=== PATIENT | female | born 1950 | race African-American/Black ===

== ENCOUNTER 2016-11-11 15:34 | Outpatient (CLI) | payer OTHER | END 2016-11-11 20:37 | disposition home or self-care (01) | LOC: SRD 15:34 | PROVIDERS: ATTEND Orthopaedic Surgery | DX: Z01.818 Encounter for other preprocedural examination (principal); J44.9 Chronic obstructive pulmonary disease, unspecified | CPT/HCPCS: 71020-TC ==

== ENCOUNTER 2016-11-14 08:57 | Inpatient (IN) | payer OTHER ==
[2016-11-10 13:01] LABS: BASOPHILS % (AUTO) 0.7 % (0.0-2.0); EOSINOPHILS % (AUTO) 0.8 % (0.0-4.0); HEMATOCRIT 31.6 % (36-48); HEMOGLOBIN 10.4 g/dL (12.0-16.0); LYMPHOCYTES # (AUTO) 2.2 K/uL (1.0-5.5); LYMPHOCYTES % (AUTO) 37.6 % (20.5-51.5); MEAN CORPUSCULAR HEMOGLOBIN 29 pg (27-31); MEAN CORPUSCULAR HGB CONC 33 % (32-36); MEAN CORPUSCULAR VOLUME 89 fL (79.0-98.0); MONOCYTES # (AUTO) 0.3 K/uL (0.0-1.0); MONOCYTES % (AUTO) 4.9 % (1.7-9.3); NEUTROPHILS # (AUTO) 3.5 K/uL (1.8-7.7); PLATELET COUNT (AUTO) 334 K/uL (130-430); RED BLOOD CELL COUNT(AUTO) 3.57 MIL/uL (4.2-6.2); RED CELL DISTRIBUTION WIDTH 13.1 % (9.0-15.0)
[2016-11-10 13:04] LABS: BILIRUBIN,URINE NEGATIVE (NEGATIVE); BLOOD, URINE TRACE (NEGATIVE); CLARITY/URINE CLEAR (CLEAR); COLOR,URINE YELLOW (YELLOW); GLUCOSE,URINE NEGATIVE (NEGATIVE); KETONES,URINE NEGATIVE (NEGATIVE); LEUKOCYTE ESTERASE ,URINE NEGATIVE (NEGATIVE); NITRITE, URINE NEGATIVE (NEGATIVE); PH,URINE 5.5 (5.0-8.0); PROTEIN URINE NEGATIVE (NEGATIVE); UROBILINOGEN,URINE 0.2 (0.2-1.0)
[2016-11-10 13:05] LABS: CREATININE 0.68 mg/dL (0.55-1.30); POTASSIUM 3.7 mmol/L (3.5-5.1)
[2016-11-10 13:22] LABS: RBC,URINE 0-3 /HPF (0-3); WBC,URINE NONE SEEN /HPF (0-3)
[2016-11-10 13:23] LABS: BACTERIA,URINE RARE /HPF (None Seen); MUCUS,URINE None Seen /LPF (None Seen)
[~2016-11-14] VITALS: Ht 152.4 cm; Wt 62.6 kg
[~2016-11-14 08:57] MED LIST: CLINDAMYCIN PHOS 600 MG/ D5W 50 ML PREMIX IV ONE; CLINDAMYCIN PHOSPHATE 600 mg/50mL D5W IV ONE; COMMUNICATION ORDER XX ONE; VANCOMYCIN 1 GM/NS 250 ML PREMIX BAG IV ONE; VANCOMYCIN HCL 1,000 MG in NS 250 ML IV ONE
[2016-11-14] MEDS ORDERED: HYDR25TA4 PO (09:51)
[2016-11-14] MEDS ORDERED: FERR140T PO (09:51)
[2016-11-14] MEDS ORDERED: HYDR-1189 PO (09:51)
[2016-11-14] MEDS ORDERED: CETI1TAB2 PO (10:05)
[2016-11-14] MEDS ORDERED: IBUP-1517 PO (10:05)
[2016-11-14] MEDS ORDERED: POLYMYXIN 500,000/BACIT.10,000 UNITS in NS IRR 1 L IR ONE (11:11)
[2016-11-14] MEDS ORDERED: DOXYCYCLINE HYCLATE 100 MG VIAL IV ONE (12:00)
[2016-11-14] MEDS ORDERED: NS 100 ML BAG IV ONE (12:00)
[2016-11-14] MEDS ORDERED: NORMAL SALINE 10 ML VIAL IVP ONE (12:00)
[2016-11-14] MEDS ORDERED: ONDANSETRON HCL 4 MG/2 ML VIAL IVP ONE (12:00)
[2016-11-14] MEDS ORDERED: CLINDAMYCIN PHOSPHATE 600 mg/50mL D5W IV ONE (12:00)
[2016-11-14] MEDS ORDERED: LR 1,000 ML IV.SOLN IV ONE (12:00)
[2016-11-14] MEDS ORDERED: MIDAZOLAM HCL 5 MG/5 ML VIAL IVP ONE (12:00)
[2016-11-14] MEDS ORDERED: TRANEXAMIC ACID 1,000 MG/10 ML VIAL IV ONE (12:00)
[2016-11-14] MEDS ORDERED: MORPHINE SULFATE 10MG/10ML PF AMP EP ONE (12:00)
[2016-11-14] MEDS ORDERED: DIPHENHYDRAMINE INJ 50 MG/ML VIAL IVP ONE (12:00)
[2016-11-14] MEDS ORDERED: LR 1,000 ML IV SCH (13:33)
[2016-11-14] MEDS ORDERED: MORPHINE SULFATE 10MG/10ML PF AMP SP SCH (13:45)
[2016-11-14] MEDS ORDERED: NALOXONE HCL 0.4 MG/ML AMP (NARCAN) IVP PRN (13:45)
[2016-11-14] MEDS ORDERED: MEPERIDINE HCL/PF 50 MG/ML AMP IVP PRN ×2 (13:45)
[2016-11-14] MEDS ORDERED: KETOROLAC TROMETHAMINE 60 MG/2 ML VIAL IM PRN (13:45)
[2016-11-14] MEDS ORDERED: METOCLOPRAMIDE HCL 10 MG/2 ML VIAL IVP PRN (13:45)
[2016-11-14] MEDS ORDERED: DIPHENHYDRAMINE INJ 50 MG/ML VIAL IM PRN (13:45)
[2016-11-14] MEDS ORDERED: MEPERIDINE HCL/PF 25 MG/ML DISP.SYRIN IVP PRN (13:45)
[2016-11-14] MEDS: D5/0.45 NS 1,000 ML IV SCH ×2 (14:40→22:33)
[2016-11-14] MEDS ORDERED: DIPHENHYDRAMINE HCL 25 MG CAPSULE PO PRN (14:45)
--- NOTE | 2016-11-14 15:40 | NUR ---
ADMIT PATIENT RECEIVED FROM PACU. REPORT GIVEN BY TIO CHISHOLM. PATIENT IN STABLE CONDITION. NO S.S OF DISTRESS OR SOB. VITAL SIGNS WNL. PATIENT IS ASLEEP, BUT EASILY AROUSABLE. LARIOS IS DRAINING TO GRAVITY. SCD AND POLAR CARE IS ON. LR IS INFUSING. AT BEDSIDE. VITAL SIGNS MONITORING STARTED. CALL LIGHT IN REACH, BED IN LOWEST POSITION ,AND WILL CONTINUE TO MONITOR.
[2016-11-14 15:45] VITALS: BP_SYST 114
--- NOTE | 2016-11-14 15:49 | NUR ---
CONSULTATION PAGED REASON FOR CONSULTATION: MED MANAGEMENT WAS CONSULT CALLED?: Y PERSON WHO WAS NOTIFIED: MEÑO CONSULTING PHYSICIAN: YAJAIRA TABARES AUTOMOTIVE ALIGNMENT SPECIALIST SPECIALTY: FAMILY MEDICINE AUTOMOTIVE ALIGNMENT SPECIALIST PHONE NUMBER: [phone] REQUESTING PHYSICIAN: HAL CAGLE
[2016-11-14 15:59] VITALS: BP_SYST 114
[2016-11-14] MEDS ORDERED: TRANEXAMIC ACID 1,000 MG in NS 50 ML IV ONE (17:45)
[2016-11-14] MEDS: ONDANSETRON HCL 4 MG/2 ML VIAL IVP PRN (17:46)
[2016-11-14] MEDS: KETOROLAC TROMETHAMINE 15 MG VIAL IVP SCH (17:47)
--- NOTE | 2016-11-14 18:47 | NUR ---
CLOSING NOTE: PATIENT IS RESTING COMFORTABLY IN BED. NO S/S OF DISTRESS OR SOB. PATIENT IS AWAKE AND ALERT. SON IS AT BEDSIDE. PATIENT WAS NAUSEOUS AND THREW UP WITH DINNER, ZOFRAN ADMINISTERED. PATIENT IS HAVING MORE MOVEMENT IN TOES. LARIOS DRAINING TO GRAVITY. CALL LIGHT IN REACH, BED IN LOWEST POSITION, AND WILL CONTINUE TO MONITOR.
--- NOTE | 2016-11-14 19:46 | NUR ---
PM ASSESSMENT AND REPORT PATIENT APPEARS DROWSY, BUT ALERT, ORIENTED X4. ABLE TO MAKE NEEDS KNOWN. FAMILY AT BEDSIDE FOR COMFORT AND SUPPORT. PATIENT SPEECH IS CLEAR AND UNDERSTANDABLE. VITAL SIGNS CHECKED AND WITHIN NORMAL BASELINE FOR PATIENT. PATIENT RIGHT KNEE WITH POLAR CARE, KNEE COVERED WITH DORY WRAP DRESSING C/D/I. HEMOVAC DRAINING BLOODY DRAINAGE. PATIENT COMPLAINING OF NAUSEA, MEDICATION GIVEN PER DAY SHIFT NURSE, WILL CONTINUE TO MONITOR FOR IMPROVEMENT. PATIENT WITH LARIOS CATHETER IN PLACE, DRAINING CLEAR YELLOW URINE TO GRAVITY. PATIENT ENCOURAGED TO USE INCENTIVE SPIROMETER, NOTED REACHED 1500 AT THIS TIME, ENCOURAGE TO INCREASE BY MORNING GOAL OF 1800. PATIENT DENIES ANY PAIN AT THIS TIME. OFFLOADING OF HEELS. ENCOURAGE [id number], PATIENT DEMONSTRATED ABILITY TO SELF TURN, RISKS AND BENEFITS EXPLAINED.
[2016-11-14 19:53] VITALS: BP_SYST 134
--- NOTE | 2016-11-14 20:07 | NUR ---
NAUSEA AND VOMITING PATIENT IS FEELING NAUSEA AND IS VOMITING X2 APPROXIMATELY 300 ML. PAGED MD GUZMAN FOR MORE MEDICATIONS PRN. AWAITING CALL BACK. PROVIDED PATIENT ICE CHIPS AND BASIN AND TOWEL. COMFORT MEASURES PROVIDED.
[2016-11-14] MEDS: METOCLOPRAMIDE HCL 10 MG/2 ML VIAL IVP PRN (20:28)
[2016-11-14] MEDS: SENNOSIDES 8.6 MG TABLET PO SCH ×2 (20:28→20:30)
--- NOTE | 2016-11-14 20:30 | NUR ---
MEDICATION PROVIDED NAUSEA MEDICATION ORDERED. AWAITING TO REASSESS RELIEF. MD ALBRECHT MADE AWARE OF PATIENTS DROWSINESS, PATIENT RESPONDS VERBALLY TO NAME AND QUESTIONS APPROPRIATELY. VITAL SIGNS RECHECKED AND WITHIN NORMAL BASELINE. WILL CONTINUE TO MONITOR FOR CHANGES.
--- NOTE | 2016-11-14 20:46 | NUR ---
Spoke to Dr. Tuttle over the phone, updated him on patient's status and new medication orders recieved from Dr. Paige, no new orders at this time.
--- NOTE | 2016-11-14 20:51 | NUR ---
ROUTINE CONSULTATION FOR DR RHEA GENTILE: MED MANAGEMENT ORDERED BY: DR PALMER SPOKE WITH: JAMES
--- NOTE | 2016-11-14 21:03 | NUR ---
Spoke to Dr. Ruelas regarding new consult, updated him on patient's status, states he will see patient in the am. No new orders at this time.
--- NOTE | 2016-11-14 22:31 | NUR ---
ROUNDS PATIENT RESTING AT THIS TIME. BED IN LOWEST POSITION, BED ALARM ON. CONTINUOS PULSE OX READS 95% ON 2 LITERS OXYGEN VIA NASAL CANNULA.
[2016-11-15] VITALS: BP_SYST 103
--- NOTE | 2016-11-15 00:40 | NUR ---
Rounds Patient asleep at this time, easily awakens with name calling. Patient in no distress. Bed alarm on.
--- NOTE | 2016-11-15 01:36 | NUR ---
ROUNDS PATIENT IN BED RESTING. DENIES ANY PAIN AT THIS TIME. LARIOS CATHETER DRAINING CLEAR YELLOW URINE. D5%1/2 NS INFUSING AT 100ML/HR PATENT. PATIENT ON CONTINUOS PULSE OX WITH SPO2 SHOWING 95% ON 2 LITERS OF OXYGEN VIA NC. TURNED AND REPOSITIONED.
--- NOTE | 2016-11-15 03:39 | NUR ---
ROUNDS PATIENT AWAKE, ALERT, ORIENTED X4. APPEARS LESS DROWSY AT THIS TIME. PATIENT IN BED RESTING ASSISTED WITH TURNING AND REPOSITIONING OF PILLOWS. PATIENT ENCOURAGED TO USE IS WHILE AWAKE. PATIENT AT THIS TIME USING IS NOTED PATIENT REACHED 1500 ML ON IS.
[2016-11-15 03:43] VITALS: BP_SYST 100
[2016-11-15 06:29] LABS: BASOPHILS % (AUTO) 0.1 % (0.0-2.0); EOSINOPHILS % (AUTO) 0.1 % (0.0-4.0); HEMATOCRIT 29.5 % (36-48); HEMOGLOBIN 9.5 g/dL (12.0-16.0); LYMPHOCYTES # (AUTO) 0.9 K/uL (1.0-5.5); LYMPHOCYTES % (AUTO) 9.7 % (20.5-51.5); MEAN CORPUSCULAR HEMOGLOBIN 29 pg (27-31); MEAN CORPUSCULAR HGB CONC 32 % (32-36); MEAN CORPUSCULAR VOLUME 89 fL (79.0-98.0); MONOCYTES # (AUTO) 0.6 K/uL (0.0-1.0); MONOCYTES % (AUTO) 6.9 % (1.7-9.3); NEUTROPHILS # (AUTO) 7.8 K/uL (1.8-7.7); NEUTROPHILS % (AUTO) 83.2 % (40.0-70.0); PLATELET COUNT (AUTO) 316 K/uL (130-430); RED BLOOD CELL COUNT(AUTO) 3.31 MIL/uL (4.2-6.2); RED CELL DISTRIBUTION WIDTH 13.1 % (9.0-15.0); WHITE BLOOD COUNT (AUTO) 9.3 K/uL (4.8-10.8)
--- NOTE | 2016-11-15 06:34 | NUR ---
CLOSING NOTES PATIENT AWAKE, ALERT, AND ORIENTED X4. DENIES ANY PAIN IN RIGHT KNEE. PATIENT SEEN USING IS IN BED. ENCOURAGE TO USE 10X/HR. BED IN LOWEST POSITION.
[2016-11-15 06:43] LABS: CALCIUM 8.2 mg/dL (8.4-11.0); CREATININE 0.71 mg/dL (0.55-1.30); POTASSIUM 3.5 mmol/L (3.5-5.1)
--- NOTE | 2016-11-15 07:30 | NUR ---
INITIAL NOTE PT SITTING UP IN BED, AWAKE, ALERT AND ORIENTED, COMPLAINS OF NAUSEA, DENIES ANY PAIN AT THIS TIME, STATES IT IS TOLERABLE, WILL FOLLOW UP WITH NAUSEA MEDICATION, DR PALMER AT BEDSIDE, RIGHT KNEE ASSESSED, DRESSING CLEAN DRY AND INTACT, PT ABLE TO WIGGLE TOES, PULSES PALPABLE, SWELLING NOTED, NO PITTING, IV FLUIDS INFUSING TO LFA AT ORDERED RATE, NO S/S OF INFILTRATION NOTED, INCENTIVE SPIROMETER AT BEDSIDE, PT ABLE TO DEMONSTRATE USE, UP TO 1000, PT REORIENTED TO USE OF CALL LIGHT AND IT IS PLACED WITHIN REACH, SAFETY MEASURES IN PLACE, WILL CONTINUE TO MONITOR
--- NOTE | 2016-11-15 07:55 | NUR ---
DR WILKERSON AT BEDSIDE, NEW ORDERS RECEIVED WILL CARRY OUT AND CONTINUE TO MONITOR
[2016-11-15 08:00] VITALS: BP_SYST 139
[2016-11-15] MEDS: KETOROLAC TROMETHAMINE 15 MG VIAL IVP SCH ×2 (08:16)
[2016-11-15] MEDS: ASCORBIC ACID 500 MG TABLET PO SCH ×2 (08:16→22:45)
[2016-11-15] MEDS: MULTIVITAMINS TAB 1 TABLET PO SCH (08:16)
[2016-11-15] MEDS: METOCLOPRAMIDE HCL 10 MG/2 ML VIAL IVP PRN ×2 (08:16→20:52)
[2016-11-15] MEDS ORDERED: HYDROmorphone 1 MG INJ. 1 MG/ML AMPUL IVP PRN (08:30)
[2016-11-15] MEDS ORDERED: NALOXONE HCL 0.4 MG/ML AMP (NARCAN) IVP PRN (08:30)
[2016-11-15] MEDS ORDERED: HYDROMORPHONE PCA 10 mg/50 mL IV PRN (08:30)
--- NOTE | 2016-11-15 08:46 | NUR ---
DISCHARGE PLANNING DC planning order to arrange home health. Faxed referral to MD ardon [phone]. Will follow up. Addendum: 11/15/16 at 1143 by Zaynab Kaur DP Spoke with Hilary in intake dept at [facility] able to accept case. Hilary made aware of discharge plan. Faxed DME order for FWW to [phone] requesting for DME to be delivered to patient hospital room. Will follow up. Addendum: 11/15/16 at 1420 by Zaynab Kaur DP spoke with intake dept at [facility] who advised DCP to call back due to referral still pending to be reviewed. DCP will follow up. Addendum: 11/15/16 at 1625 by Zaynab Kaur DP Spoke with Berhane in intake dept at [facility] [phone] confirmed DME order for FWW was received and currently in process. Berhane will return call to MSP with status. DCP will follow up.
[2016-11-15] MEDS ORDERED: HYDROCHLOROTHIAZIDE 25 MG TABLET (HCTZ) PO SCH (09:00)
[2016-11-15] MEDS: KCL 20 mEq in D5NS 1000 mL 1,000 ML IV SCH ×2 (09:21→16:11)
[2016-11-15] MEDS: PANTOPRAZOLE SODIUM 40 MG/VIAL (PROTONIX) IVP SCH (09:22)
[2016-11-15] MEDS: RIVAROXABAN 10 MG TABLET PO SCH (09:22)
--- NOTE | 2016-11-15 09:40 | NUR ---
PATIENT CONNECTED TO COMMUNICATIONS EQUIPMENT INSTALLER PUMP WITH DILAUDID, EDUCATED REGARDING USE AND HOW TO PUSH BUTTON WHEN IN PAIN, PT VERBALIZED UNDERSTANDING, CALL LIGHT WITHIN REACH, WILL CONTINUE TO MONITOR CLOSELY
--- NOTE | 2016-11-15 10:03 | NUR ---
Nutrition Update Leonides Scale 17 noted. Pt admitted for unilateral post-traumatic osteoarthritis, R knee. Diet: full liquid BMI: 27 kg/m2 RD to follow per nutrition care standards.
[2016-11-15] MEDS: ONDANSETRON HCL 4 MG/2 ML VIAL IVP PRN ×2 (10:48→16:08)
--- NOTE | 2016-11-15 11:00 | NUR ---
NAUSEA AND VOMITING PT COMPLAINING NAUSEA AND VOMITING, ADMINISTERED PRN ZOFRAN, PREVIOUSLY ADMINISTERED REGLAN AT 0820, WILL CONTINUE TO MONITOR PT CLOSELY
[2016-11-15] MEDS ORDERED: PROMETHAZINE HCL 25 MG/ML AMP IM PRN (11:15)
--- NOTE | 2016-11-15 11:15 | NUR ---
DOWLING MAKING ROUNDS, UPDATED ON PATIENT STATUS, PT EXPERIENCING NAUSEA AND VOMITING DESPITE REGLAN AND ZOFRAN, ORDERED PHENERGAN 15MG IM PRN, NOTED PT IS SITTING IN BEDSIDE CHAIR, MD STATED WHEN PATINET RETURNS TO BED TO ADMINISTER PHENERGAN DUE TO POSSIBLE WEAKNESS
[2016-11-15 12:00] VITALS: BP_SYST 131
--- NOTE | 2016-11-15 12:00 | NUR ---
PATIENT RETURNED TO BED, EDUCATED REGARDING NEW MEDIATION FOR NAUSEA PHENERGAN, PT STATES NAUSEA I BETTER AT THE MOMENT, REFUSES MEDICATION AT THIS TIME, WILL FOLLOW UP
--- NOTE | 2016-11-15 13:00 | NUR ---
ROUNDS PT LAYING IN BED, RESTING, EYES CLOSED, EVEN RISE AND FALL OF CHEST NOTED, SAFETY MEASURES IN PLACE, CALL LIGHT WITHIN REACH, WILL CONTINUE TO MONITOR
--- NOTE | 2016-11-15 14:30 | NUR ---
ROUNDS PT AWAKE, ALERT AND ORIENTED, DENIES ANY PAIN OR NAUSEA AT THIS TIME, PER REPORT SHE WAS ABLE TO TOLERATE LUNCH MODERATELY, NO EPISODE OF VOMITING, PT STATES SHE IS FEELING BETTER, PULSES PALPABLE BILATERALLY, PT ABLE TO WIGGLE TOES, PT ABLE TO ISABEL INCENTIVE SPIROMETER AND REACH 1000 TO 1500, WILL CONTINUE TO ENCOURAGE USE,
--- NOTE | 2016-11-15 16:00 | NUR ---
ZOFRAN GIVEN BEFORE DINNER PER PATIENT REQUEST, PT IS HOPING SHE WILL BE ABLE TO TOLERATE FOOD, WITH OUT NAUSEA AND VOMITING, WILL FOLLOW UP
--- NOTE | 2016-11-15 16:00 | NUR ---
PHYSICAL THERAPY CO-SIGN The Physical Therapy Progress Notes documented by Scholastic Aptitude Test Grader have been reviewed. Reviewed/Co-Signed by: Celsa Nascimento, PT Documentation Done by: Esvin Martinez PTA I concur with the PM documentation of this RIFLE CASE REPAIRER. Plan: continue as per plan of care. Addendum: 11/16/16 at 0914 by Celsa Nascimento PT Amended: Links added.
[2016-11-15 16:37] VITALS: BP_SYST 131
[2016-11-15 17:11] VITALS: BP_SYST 128
--- NOTE | 2016-11-15 18:00 | NUR ---
FAMILY AT BEDSIDE, PT SHOBHA SHE WAS ABLE TO TOLERATE A BIT MORE FOOD, DENIES ANY PAIN OR NAUSEA AT THIS TIME, VSS, NO S/S OF ACUTE DISTRESS, HEMOVAC EMPTIED, OUTPUT 125ML DURING SHIFT, CALL LIGHT WITHIN REACH, BED IN LOW POSITION AND LOCKED, WILL FOLLOW UP
--- NOTE | 2016-11-15 18:45 | NUR ---
CLOSING NOTE PT LAYING IN BED, AWAKE, ALERT AND ORIENTED, NO S/S OF ACUTE DISTRESS, FAMILY AT BEDSIDE, DENIES ANY PAIN AT TIME, PT REEDUCATED REGARDING USE OF PHOTO PRINT SPECIALIST PUMP PT VERBALIZES UNDERSTANDING AND ABLE TO DEMONSTRATE HOW TO SELF ADMINISTER DOSE, CONTINUES TO DENY PAIN, DENIES ANY NAUSEA, NO VOMITING NOTED, IV FLUIDS INFUSING AT ORDERED RATE, NO S/S OF INFILTRATION NOTED, DRESSING TO RIGHT KNEE CLEAN DRY AND INTACT, HEMOVAC IN PLACE, RECENTLY EMPTIED, ALL NEEDS ATTENDED TO THROUGHOUT SHIFT, SAFETY MEASURES MAINTAINED, CALL LIGHT WITHIN REACH, WILL GIVE REPORT TO FOLLOWING SHIFT.
--- NOTE | 2016-11-15 19:50 | NUR ---
ROUNDS PATIENT RESTING COMFORTABLY IN BED, VITALS STABLE, NOT IN DISTRESS, DENIES ANY PAIN AND DISCOMFORT AT THIS TIME. ASSESSMENT DONE AND DOCUMENTED. SEE FLOWSHEET. NEEDS ATTENDED TO. PATIENT REPOSITIONED AND MADE COMFORTABLE. SAFETY AND FALL PRECAUTION MEASURES IN PLACED. BED IN LOW AND LOCKED POSITION. CALL LIGHT PLACED WITHIN REACH.
--- NOTE | 2016-11-15 21:35 | NUR ---
Received a call from Sophia Tuttle: Received a call from Dr. Tuttle and asked how the patient doing. Informed Dr. Tuttle that patient having nausea and vomiting when having Dilaudid, Gave an order to discontinue BLOWER FEEDER DYED RAW STOCK Dilaudid. Noted and made primary RN aware.
--- NOTE | 2016-11-15 21:50 | NUR ---
NOTES BROADCAST OPERATIONS TECHNICIAN DILAUDID D/CD ORDERED, REMAINING MEDICATION, 45 ML, IN SYRINGE WASTED WITNESSED BY ADMITTING NURSE TIO DUNHAM. WILL CONTINUE TO MONITOR.
[2016-11-15] MEDS: SENNOSIDES 8.6 MG TABLET PO SCH (22:30)
[2016-11-15] MEDS: HYDROcodone/ACETAMIN 7.5-325 MG TAB PO PRN (23:59)
[2016-11-16] VITALS (8 sets, daily range): BP systolic 111–142
--- NOTE | 2016-11-16 | NUR ---
PATIENT RESTING: Patient resting quietly. No acute distress noted. Vital signs within normal range.
[2016-11-16] MEDS: KCL 20 mEq in D5NS 1000 mL 1,000 ML IV SCH ×3 (01:57→20:52)
--- NOTE | 2016-11-16 02:30 | NUR ---
ROUNDS PATIENT ASLEEP, NO SOB NOR PAIN AND DISCOMFORT NOTED. WILL CONTINUE TO MONITOR.
--- NOTE | 2016-11-16 05:10 | NUR ---
NOTES PATIENT MADE CLEAN AND COMFORTABLE, BED BATH GIVEN WITH JACOB MILAN. DENIES ANY PAIN NOR N/V AT THIS TIME. WILL CONTINUE TO MONITOR.
[2016-11-16 06:36] LABS: BASOPHILS % (AUTO) 0.2 % (0.0-2.0); EOSINOPHILS % (AUTO) 0.1 % (0.0-4.0); HEMATOCRIT 25.7 % (36-48); HEMOGLOBIN 8.3 g/dL (12.0-16.0); LYMPHOCYTES # (AUTO) 1.7 K/uL (1.0-5.5); LYMPHOCYTES % (AUTO) 20.5 % (20.5-51.5); MEAN CORPUSCULAR HEMOGLOBIN 29 pg (27-31); MEAN CORPUSCULAR HGB CONC 32 % (32-36); MEAN CORPUSCULAR VOLUME 90 fL (79.0-98.0); MONOCYTES # (AUTO) 0.8 K/uL (0.0-1.0); MONOCYTES % (AUTO) 9.8 % (1.7-9.3); NEUTROPHILS # (AUTO) 5.7 K/uL (1.8-7.7); NEUTROPHILS % (AUTO) 69.4 % (40.0-70.0); PLATELET COUNT (AUTO) 247 K/uL (130-430); RED BLOOD CELL COUNT(AUTO) 2.86 MIL/uL (4.2-6.2); RED CELL DISTRIBUTION WIDTH 13.1 % (9.0-15.0); WHITE BLOOD COUNT (AUTO) 8.2 K/uL (4.8-10.8)
[2016-11-16 06:38] LABS: CREATININE 0.72 mg/dL (0.55-1.30); POTASSIUM 3.9 mmol/L (3.5-5.1)
--- NOTE | 2016-11-16 06:50 | NUR ---
CLOSING NOTES PATIENT AWAKE, VITALS STABLE, NO PAIN, NO N/V AT THIS TIME. ALL NEEDS ATTENDED TO. LARIOS CATHETER D/CD ORDERED. PATIENT VERBALIZED UNDERSTANDING TO CALL WHEN SHE WILL VOID. SAFETY MEASURES MAINTAINED. CALL LIGHT PLACED WITHIN REACH.
--- NOTE | 2016-11-16 07:50 | NUR ---
INITIAL NOTE Received pt in bed, no s/s of distress or sob noted, pt has no c/o pain at this time, pt in stable condition, pt aaox4. Bed at lowest position, call light within reach, will continue to monitor pt for any changes. Iv catheter patent, no signs of infection or infiltration noted. Fall and aspiration precautions in place. Pt has a dressing on right knee, clean and dry, pt able to move toes, capillary refill less than 3 seconds, pulse present, sensation present, pt able to move toes, no paralysis or tingling per pt. Educated pt on use of incentive spirometer, pt to use 10 times an hour while awake, pt verbalized understanding, pt at 1200ml. Bed at lowest position, call light within reach, will continue to monitor pt for any changes. Fall precautions in place. Addendum: 11/16/16 at 1019 by Carol Ha RN pt educated to call nurse for first void, pt verbalized understanding, bladder non distended, no bleeding noted.
[2016-11-16] MEDS ORDERED: NA PHOS,M-B/NA PHOS,DI-BA 118 ML (FLEET ENEMA) RC ONE (08:00)
[2016-11-16] MEDS: PANTOPRAZOLE SODIUM 40 MG/VIAL (PROTONIX) IVP SCH (09:02)
[2016-11-16] MEDS: METOCLOPRAMIDE HCL 10 MG/2 ML VIAL IVP PRN ×2 (09:02→15:43)
[2016-11-16] MEDS: MULTIVITAMINS TAB 1 TABLET PO SCH (09:05)
[2016-11-16] MEDS: ASCORBIC ACID 500 MG TABLET PO SCH ×2 (09:05→20:53)
[2016-11-16] MEDS: HYDROcodone/ACETAMIN 7.5-325 MG TAB PO PRN ×3 (09:06→17:28)
--- NOTE | 2016-11-16 10:05 | NUR ---
ROUNDS Pt in bed, no s/s of distress or sob noted, pt has no c/o pain at this time, pt in stable condition, pt resting comfortably, will continue to monitor pt for any changes.
--- NOTE | 2016-11-16 10:28 | NUR ---
DISCHARGE PLANNING Spoke with Berhane at [facility]. Faxed requested DME order to DR PALMER office. Called and spoke with Janice who will have MD sign and fax back to DCP. DCP will follow up.
[2016-11-16] MEDS: RIVAROXABAN 10 MG TABLET PO SCH (10:29)
--- NOTE | 2016-11-16 11:50 | NUR ---
NEUROVASCULAR CHECK Pt has a dressing on right knee, clean and dry, pt able to move toes, capillary refill less than 3 seconds, pulse present, sensation present, pt able to move toes, no paralysis or tingling per pt.
--- NOTE | 2016-11-16 15:06 | NUR ---
PHYSICAL THERAPY CO-SIGN The Physical Therapy Progress Notes documented by Corrosion Technician have been reviewed. Reviewed/Co-Signed by: Celsa Nascimento, PT Documentation Done by: Esvin Martinez PTA I concur with the documentation of this MARINE PIPE WELDER. Plan: continue PT as per plan of care as she continues to make good and steady progress with PT. Addendum: 11/16/16 at 1507 by Celsa Nascimento PT Amended: Links added.
--- NOTE | 2016-11-16 18:29 | NUR ---
CLOSING NOTE Pt in bed, no s/s of distress or sob noted, pt has no c/o pain at this time, pt in stable condition, pt aaox4. Bed at lowest position, call light within reach, will continue to monitor pt for any changes. Iv catheter patent, no signs of infection or infiltration noted. Fall and aspiration precautions in place. Pt has a dressing on right knee, clean and dry, pt able to move toes, capillary refill less than 3 seconds, pulse present, sensation present, pt able to move toes, no paralysis or tingling per pt. Educated pt on use of incentive spirometer, pt to use 10 times an hour while awake, pt verbalized understanding, pt at 1200ml. Bed at lowest position, call light within reach, will endorse care of pt to incoming nurse. Fall precautions in place. Addendum: 11/16/16 at 1830 by Carol Ha RN no nausea or vomiting
--- NOTE | 2016-11-16 20:40 | NUR ---
INITIAL NOTES: RECEIVED REPORT FROM TIO BRADLEY AT 1915HR. IN BED AWAKE ,ALERT ,ORIENTED X3 ,PASHTO SPEAKING. FAMILIES AT BEDSIDE. VITAL SIGNS TAKEN. FEELS WARM .TEMP .99.PER TEMPORALS. COOLING MEASURES INITIATED. HAS TOLERABLE POST OP PAIN. IVF SITE CLEAR.ROOM AIR. ABDOMEN ,BLADDER SOFT. RIGHT KNEE WITH ICE POLAR CARE,WORKING GOOD. DRESSING DRY AND INTACT. MOVES TOES WELL .CAN RAISE LEG PER COMMAND.UP ON A PILLOW.BOTH FEET ON PLEXI PULSE. WITH PEDAL PULSES. VERBALIZED NEEDS AND DISCOMFORT. CALL LIGHT WITHIN REACH. BED IN LOW POSITION. WILL MONITOR CLOSELY.
--- NOTE | 2016-11-16 20:50 | NUR ---
VOID: NEEDS TO VOID. BED ALLEN USE ,WITH CLEAR ALBINO URINE.VOIDED FREELY. NO DYSURIA.
[2016-11-16] MEDS: SENNOSIDES 8.6 MG TABLET PO SCH (20:52)
[2016-11-16] MEDS: HYDROcodone/ACETAMIN 5-325 MG TAB (NORCO/ VICODIN) PO PRN (20:54)
--- NOTE | 2016-11-16 20:55 | NUR ---
MEDS ADMIN: REGULAR MEDS WITH PAIN MED PO GIVEN. PAIN LEVEL 5/10.
--- NOTE | 2016-11-16 22:00 | NUR ---
ROUNDS: PATIENT RESTING QUIETELY. HAS TRAPEZE TO HELP MOVEMENT.
--- NOTE | 2016-11-16 23:05 | NUR ---
VOID: PATIENT CALLED TO VOID. VOIDED USING BED ALLEN. KAYLA CARE RENDERED.
[2016-11-17] VITALS (7 sets, daily range): BP systolic 119–147
--- NOTE | 2016-11-17 02:35 | NUR ---
ROUNDS: RESTING QUITELY. BREATHING PATTERN REGULAR.
--- NOTE | 2016-11-17 03:30 | NUR ---
VITAL SIGNS TAKEN. VOIDED USING BED ALLEN/ NO ACUTE DISTRESS.
--- NOTE | 2016-11-17 04:50 | NUR ---
PAIN: MEDICATED WITH NORCO FOR POST OP PAIN.
[2016-11-17] MEDS: HYDROcodone/ACETAMIN 5-325 MG TAB (NORCO/ VICODIN) PO PRN ×3 (04:51→15:22)
--- NOTE | 2016-11-17 06:40 | NUR ---
CLOSING: NO ACUTE DISTRESS WHOLE SHIFT. PAIN FAIRLY CONTROLLED BY NORCO. NO FEVER THIA AM. ALL NEEDS WERE ATTENDED. SAFETY /ASPIRATION PRECAUTION OBSERVED.
[2016-11-17 06:42] LABS: CREATININE 0.68 mg/dL (0.55-1.30); POTASSIUM 3.1 mmol/L (3.5-5.1)
[2016-11-17 06:43] LABS: BASOPHILS % (AUTO) 0.4 % (0.0-2.0); EOSINOPHILS % (AUTO) 0.5 % (0.0-4.0); HEMATOCRIT 23.3 % (36-48); LYMPHOCYTES # (AUTO) 1.5 K/uL (1.0-5.5); LYMPHOCYTES % (AUTO) 19.4 % (20.5-51.5); MEAN CORPUSCULAR HEMOGLOBIN 30 pg (27-31); MEAN CORPUSCULAR HGB CONC 33 % (32-36); MEAN CORPUSCULAR VOLUME 89 fL (79.0-98.0); MONOCYTES # (AUTO) 0.6 K/uL (0.0-1.0); MONOCYTES % (AUTO) 7.8 % (1.7-9.3); NEUTROPHILS # (AUTO) 5.7 K/uL (1.8-7.7); NEUTROPHILS % (AUTO) 71.9 % (40.0-70.0); PLATELET COUNT (AUTO) 254 K/uL (130-430); RED BLOOD CELL COUNT(AUTO) 2.61 MIL/uL (4.2-6.2); RED CELL DISTRIBUTION WIDTH 13.2 % (9.0-15.0); WHITE BLOOD COUNT (AUTO) 7.8 K/uL (4.8-10.8)
[2016-11-17 07:05] LABS: HEMOGLOBIN 7.7 g/dL (12.0-16.0)
--- NOTE | 2016-11-17 07:54 | NUR ---
OPENING NOTE: PT RESTING IN BED, COMFORTABLY. PATIENT IS AAOX4. NO ACUTE SIGNS OF RESP DISTRESS, NO SOB. SKIN WARM DRY AND COLOR NORMAL FOR ETHNICITY. IV INTACT AND PATENT, NO REDNESS/SWELLING/PAIN TO SITE. POLAR CARE NOTED ON RIGHT KNEE. PLEXICARE ON LEFT FOOT. PATIENT ABLE TO MOVE BILATERAL TOES. CIRCULATION, SENSATION, AND PULSES PRESENT ON BILATERAL LOWER EXTREMITIES. RE-ORIENTED PATIENT ON USING INCENTIVE SPIROMETER AND PATIENT RETURNED DEMONSTRATION WITH 1000ML RESULTS. EDUCATED TO USE IS 10X/HR, PT VERBALIZED UNDERSTANDING. PATIENT VOIDED. NO FEVER NOTED. BED AT LOWEST POSITION, CALL LIGHT IN REACH, BED ALARM ON, SIDE RAILX3.
--- NOTE | 2016-11-17 08:09 | NUR ---
PAGING DR. WILKERSON: REGARDING LAB RESULTS. AWAITING CALL BACK.
[2016-11-17] MEDS: ASCORBIC ACID 500 MG TABLET PO SCH ×2 (08:29→21:20)
[2016-11-17] MEDS: PANTOPRAZOLE SODIUM 40 MG/VIAL (PROTONIX) IVP SCH (08:29)
[2016-11-17] MEDS: MULTIVITAMINS TAB 1 TABLET PO SCH (08:29)
[2016-11-17] MEDS: ONDANSETRON HCL 4 MG/2 ML VIAL IVP PRN ×2 (08:30→21:25)
[2016-11-17] MEDS: KCL 20 mEq in D5NS 1000 mL 1,000 ML IV SCH (08:37)
--- NOTE | 2016-11-17 08:48 | NUR ---
DISCHARGE PLANNING Called Dr Parag herrera, still pending signed DME order to be faxed for FWW can be processed and delivered prior to patient discharge. DCP will follow up. Addendum: 11/17/16 at 1157 by Zaynab Kaur DP Met with patient at bedside, provided [facility] for patient discharge pending DME to process. Received and faxed signed DME order for FWW to [facility] [employer] [place] [phone]. called [phone] spoke with Mariann who was made aware signed DME order was faxed. Mariann will review. DCP will follow up. Addendum: 11/17/16 at 1322 by Zaynab Kaur DP called Mariann at [facility] [place] [phone] second voice message left requesting return call back to confirm signed order was received and DME order for FWW will be processed. DCP will follow up.
--- NOTE | 2016-11-17 09:05 | NUR ---
DR. WILKERSON CALLED BACK: DR. WILKERSON CALLED BACK. DR. WILKERSON AWARE THAT PATIENTS H&H IS 7.[address] WILKERSON ALSO AWARE THAT PATIENTS POTASSIUM IS 3.1. NEW ORDERS NOTED.
[2016-11-17] MEDS ORDERED: POTASSIUM CHLORIDE 20 MEQ/PKT PACKET PO ONE (09:15)
[2016-11-17] MEDS: RIVAROXABAN 10 MG TABLET PO SCH (09:23)
--- NOTE | 2016-11-17 09:51 | NUR ---
RIGHT KNEE SURGERY DRESSING CHANGE: RIGHT KNEE SURGERY DRESSING CHANGED PER DR. KEARNEY ORDERS. PATIENT TOLERATED WELL. NEW DRESSING, CLEAN DRY AND INTACT.
--- NOTE | 2016-11-17 10:21 | NUR ---
ROUNDING: PT SITTING ON CHAIR. JUST FINISHED WALKING WITH PHYSICAL THERAPY. NO ACUTE SIGNS OF RESP DISTRESS, NO SOB. SKIN WARM DRY AND COLOR NORMAL FOR ETHNICITY. UIV INTACT AND PATENT, NO REDNESS/SWELLING/PAIN TO SITE. MED GIVEN PER MD ORDERS, PT TOLERATING WELL. DENIES NAUSEA AND VOMITING AT THIS TIME. DENIES PAIN AT THIS TIME. ENCOURAGED TRO USE INCENTIVE SPIROMETER. BED AT LOWEST POSITION, CALL LIGHT IN REACH.
--- NOTE | 2016-11-17 12:15 | NUR ---
BT INITIATION: Consent signed per patient agreeing to administration of blood. Blood has been type and crossmatched. Blood sent from blood bank. Information on unit of blood checked against patient wristband at bedside by two nurses. All information matches. Patient or responsible green party informed of potential complications associated with blood transfusion. Informed of possible transfusion reaction symptoms. Aware of need to notify nurse at once of itching, shortness of breath, flushing, feeling of impending doom, or other symptoms not previously present. Vital signs taken within 5 minutes prior to initiation of transfusion (temperature 98.4, pulse 83, BP 137/69, 99% O2, RR-16). RN will remain with patient for first 15 minutes of transfusion at which time vital signs will be re-assessed.
--- NOTE | 2016-11-17 12:30 | NUR ---
15MIN AFTER BLOOD TRANSFUSION INITIATION: V/S: BP - 137/65, PULSE - 86, TEMP -97.4, O2 SATURATION - 98% O2, RR -16. PATIENT DENIES SOB, BACK PAIN, ITCHING/RASH. NO ACUTE SIGNS OF RESP DISTRESS, NO SOB. SKIN WARM DRY AND COLOR NORMAL FOR ETHNICITY. EDUCATED PATIENT ON S/S OF BLOOD TRANSFUSION REACTION, PATIENT VERBALIZED UNDERSTANDING. ALL NEEDS MET AT THIS TIME. CONTINUE TO MONITOR.
[2016-11-17] MEDS ORDERED: MAGNESIUM CITRATE 300 ML ORAL SOLUTION PO ONE (13:00)
--- NOTE | 2016-11-17 13:00 | NUR ---
PHYSICAL THERAPY CO-SIGN The Physical Therapy Progress Notes documented by Osteologist have been reviewed. Reviewed/Co-Signed by: Celsa Nascimento, PT Documentation Done by: Esvin Martinez. SILVER BRAZER I concur with the PM documentation of this SILVER BRAZER. Patient continue to make good and steady progress with PT. Plan: possible DC later today. Addendum: 11/17/16 at 1301 by Celsa Nascimento PT Amended: Links added.
--- NOTE | 2016-11-17 14:00 | NUR ---
ROUNDING: PT RESTING IN BED, NO ACUTE SIGNS OF RESP DISTRESS, NO SOB. SKIN WARM DRY AND COLOR NORMAL FOR ETHNICITY. IV INTACT AND PATENT, NO REDNESS/SWELLING/PAIN TO SITE. BLOOD TRANSFUSION INFUSING WELL. DENIES SOB, ITCHING, RASH, AND BACK PAIN. ABLE TO MOVE TOES. SENSATION, CIRCULATION, AND PULSE PRESENT ON BLE. POLAR CARE IN PLACE. PLEXIPULSE IN PLACE. BED AT LOWEST POSITION, CALL LIGHT IN REACH, BED ALARM ON, SIDE RAILX3. ENCOURAGED TO USE INCENTIVE SPIROMETER.
[2016-11-17] MEDS: METOCLOPRAMIDE HCL 10 MG/2 ML VIAL IVP SCH ×2 (15:21→18:22)
--- NOTE | 2016-11-17 16:00 | NUR ---
END BLOOD TRANSFUSION: NO REACTION NOTED. DENIES SOB, BACK PAIN, AND ITCHY/RASHES. VITAL SIGNS: TEMP-99.3, PULSE-83, RR-16, BP-135/73. NO ACUTE SIGNS OF RESP DISTRESS, NO SOB.
--- NOTE | 2016-11-17 16:55 | NUR ---
ROUNDING: SON AT BEDSIDE. PATIENT RESTING IN BED. NO ACUTE SIGNS OF RESP DISTRESS, NO SOB. SKIN COLOR NORMAL FOR ETHNICITY. IV INTACT AND PATENT, NO REDNESS/SWELLING/PAIN TO SITE. PULSES, SENSATION AND CIRCULATION PRESENT ON BLE. POLARCARE ON RIGHT KNEE. PLEXIPULSE ON LEFT FOOT. DRESSING ON RIGHT KNEE CLEAN DRY AND INTACT. BED AT LOWEST POSITION, CALL LIGHT IN REACH, BED ALARM ON, SIDE RAILX3.
--- NOTE | 2016-11-17 16:55 | NUR ---
PAGED DR. WILKERSON: AWAITING CALL BACK.
[2016-11-17] MEDS ORDERED: ACETAMINOPHEN 500 MG TABLET PO PRN ×2 (17:00→18:00)
[2016-11-17] MEDS ORDERED: POTASSIUM CHLORIDE 20 MEQ TAB.PRT.SR PO ONE (18:00)
--- NOTE | 2016-11-17 18:04 | NUR ---
CLOSING NOTE: PT RESTING IN BED, SEMI FOWLERS. SON AT BEDSIDE. NO ACUTE SIGNS OF RESP DISTRESS NOTED, NO SOB. SKIN WARM DRY AND COLOR NORMAL FOR ETHNICITY. IV INTACT AND PATENT, NO REDNESS/SWELLING/PAIN TO SITE. DRESSING ON RIGHT KNEE CLEAN DRY AND INTACT WITH POLAR CARE. PULSES, CIRCULATION, AND SENSATION PRESENT ON BLE. PATIENT ABLE TO USE INCENTIVE SPIROMETER WITH 1000ML RESULTS. PLEXI PULSE ON LEFT FOOT IN PLACE. BED AT LOWEST POSITION, CALL LIGHT IN REACH, BED ALARM ON, SIDE RAILX3. WILL ENDORSE PLAN OF CARE TO TIO RENE.
[2016-11-17] MEDS ORDERED: ACETAMINOPHEN 325 MG TABLET PO PRN (18:16)
[2016-11-17] MEDS: SENNOSIDES 8.6 MG TABLET PO SCH (21:20)
--- NOTE | 2016-11-17 21:45 | NUR ---
Patient awake alert family at the bedside Polar care to right knee in place DSD clean dry intact comfort measures implemented tolerated .
--- NOTE | 2016-11-18 | NUR ---
ZOFRAN 4 MG IVP ADMINISTER FOR GI UPSET & HELPFUL .
[2016-11-18] MEDS: METOCLOPRAMIDE HCL 10 MG/2 ML VIAL IVP SCH ×3 (00:25→11:12)
[2016-11-18] MEDS: KCL 20 mEq in D5NS 1000 mL 1,000 ML IV SCH (00:26)
--- NOTE | 2016-11-18 00:45 | NUR ---
ASSIST PATIENT with use of bedpan , did urinate kept clean and dry as needed call with PT .
[2016-11-18 03:35] VITALS: BP_SYST 132
--- NOTE | 2016-11-18 03:55 | NUR ---
Hourly Rounding patient resting call meehan with PT assist for position change implemented & tolerated .
--- NOTE | 2016-11-18 03:59 | NUR ---
REGLAN 5 MG IVP ADMINISTER FOR GI upset & helpful / .
--- NOTE | 2016-11-18 04:38 | NUR ---
Patient resting this hour , call meehan with PT bed to low position chest movement symmetrical unlabored .
[2016-11-18 07:39] LABS: BASOPHILS % (AUTO) 0.4 % (0.0-2.0); EOSINOPHILS # (AUTO) 0.1 K/uL (0.0-0.4); EOSINOPHILS % (AUTO) 0.8 % (0.0-4.0); HEMATOCRIT 28.9 % (36-48); HEMOGLOBIN 9.4 g/dL (12.0-16.0); LYMPHOCYTES # (AUTO) 1.5 K/uL (1.0-5.5); LYMPHOCYTES % (AUTO) 20.8 % (20.5-51.5); MEAN CORPUSCULAR HEMOGLOBIN 29 pg (27-31); MEAN CORPUSCULAR HGB CONC 33 % (32-36); MEAN CORPUSCULAR VOLUME 90 fL (79.0-98.0); MONOCYTES # (AUTO) 0.5 K/uL (0.0-1.0); MONOCYTES % (AUTO) 7.5 % (1.7-9.3); NEUTROPHILS # (AUTO) 5.1 K/uL (1.8-7.7); NEUTROPHILS % (AUTO) 70.5 % (40.0-70.0); PLATELET COUNT (AUTO) 291 K/uL (130-430); RED BLOOD CELL COUNT(AUTO) 3.22 MIL/uL (4.2-6.2); RED CELL DISTRIBUTION WIDTH 13.3 % (9.0-15.0); WHITE BLOOD COUNT (AUTO) 7.2 K/uL (4.8-10.8)
--- NOTE | 2016-11-18 08:00 | NUR ---
OPENING NOTE PATIENT PLACED ON BEDPAN, VITALS OBTAINED. LUNGS CLEAR. IV INFUSING. NO SIGNS OF DISTRESS. LEG WRAPPED IN SURGICAL BANDAGE, POLAR CARE APPLIED.
[2016-11-18 08:07] LABS: ALBUMIN 2.5 g/dL (3.4-4.8); CALCIUM 8.3 mg/dL (8.4-11.0); CREATININE 0.68 mg/dL (0.55-1.30); TOTAL BILIRUBIN 0.6 mg/dL (0.0-1.0)
[2016-11-18 08:36] VITALS: BP_SYST 146
[2016-11-18] MEDS: MULTIVITAMINS TAB 1 TABLET PO SCH (09:35)
[2016-11-18] MEDS: ASCORBIC ACID 500 MG TABLET PO SCH (09:36)
[2016-11-18] MEDS: PANTOPRAZOLE SODIUM 40 MG/VIAL (PROTONIX) IVP SCH (09:36)
[2016-11-18] MEDS: RIVAROXABAN 10 MG TABLET PO SCH (09:36)
--- NOTE | 2016-11-18 09:40 | NUR ---
DR CASTILLO IN TO SEE PATIENT. LEG UNDRESSED PRIOR TO MD ARRIVAL PER HIS REQUEST. SITE CLEAN, DRY, INTACT WITH GLUE/SARAHY. PATIENT C/O 2/10 PAIN IN KNEE AT REST.
--- NOTE | 2016-11-18 10:18 | NUR ---
SPOKE W DR HOPPER RE PATIENT DC ORDERS. NEEDS ORDER FOR DC PLANNING TO HAVE WALKER AND HOME HEALTH IN PLACE PRIOR TO DISCHARGE. CASE MANAGEMENT PAGED.
--- NOTE | 2016-11-18 10:26 | NUR ---
DC PLANNING: CALLED AND LEFT A VOICE MAIL MESAGE TO [facility] TEL# [phone], WHO INITIALLY ACCEPTED THE PT,WILL JUST CONFIRM ACCEPTANCE. LEFT A MESSAGE ALSO TO [facility], FAXED THE SIGNED DME ORDER LAST 11/15/16. TO F/U. Addendum: 11/18/16 at 1212 by Meg Calderón RN CALLED AND LEFT A MESSAGE TO [facility] THAT PT WILL BE DISCHARGE TODAY AND TO CALL THE PT FOR THEIR FIRST VISIT. LOANED A FWW (CASE MANAGEMENT PROPERTY) TO THE PATIENT TO TAKE HOME AND USE WHILE WAITING FOR THE FWW TO BE DELIVERED TO THEIR HOUSE. INSTRUCTED THE PATIENT REGARDING HER HOME HEALTH AND TO GIVE BACK THE FWW TO THE CASE MANAGEMENT DEPT BY A FAMILY MEMBER WHEN HER FWW IS DELIVERED, VERBALIZED UNDERSTANDING. REQUESTED GERI KINSEY AND RITA NURSE COLOR RECEIVER TO INTERPRET FOR CM IN [place]. ENDORSED TO KODAK KINSEY.
[2016-11-18] MEDS: HYDROcodone/ACETAMIN 5-325 MG TAB (NORCO/ VICODIN) PO PRN (11:11)
[2016-11-18 12:00] VITALS: BP_SYST 126
--- NOTE | 2016-11-18 13:07 | NUR ---
PT EATING LUNCH, REPORTS NO NAUSEA, REPORTS CONTROLLED PAIN. STATES FAMILY IS ON THE WAY IN TO TAKE HER HOME.
[2016-11-18 15:54] VITALS: BP_SYST 132
--- NOTE | 2016-11-18 15:57 | NUR ---
SON AT BEDSIDE. PATIENT DC FORMS SIGNED AND GIVEN TO PT WITH INSTRUCTIONS. NO PRESCRIPTIONS GIVEN IN HOSPITAL. PT GIVEN WALKER FROM [facility], WILL RETURN WHEN HOME HEALTH AGENCY BRINGS HER PERSONAL WALKER. ABLE TO AMBULATE TO RESTROOM WITH ASSIST AND WITH WALKER. IV DC'D AND PRESSURE DRESSING APPLIED. TAKEN TO PRIVATE AUTO VIA WHEELCHAIR. VERBALIZED UNDERSTANDING OF ALL DISCHARGE INSTRUCTIONS, AFTER CARE AND WHEN TO CALL MD/RETURN TO HOSPITAL. NO SIGNS OF DISTRESS, PAIN WELL CONTROLLED.
[2016-11-18 16:10] VITALS: BP_SYST 132
--- NOTE | 2016-11-21 14:18 | NUR ---
Discharge Follow Up Phone Call [facility] phoned patient, , and left a voicemail message with offer of assistance and Social Service contact information. [facility] noted that patient has a premade appointment for follow up with Dr Camilo. W[employer] SERVICE [employer]PATCHER phoned [facility] [phone]. They have started services with patient. [facility] is aware that [facility] is continuing to assure patient will have a FWW delivered but that patient has a borrowed FWW to use until one is delivered. [facility] will continue to attempt to contact patient. Addendum: 11/23/16 at 1329 by Anya Escobar LCSW Patient's family member left a voicemail message stating all was going well and that they are satisfied with the home health services. They did not require a return call. Addendum: 11/23/16 at 1601 by Anya Escobar LCSW Spoke with patient's and told him the FWW was not authorized by the insurance. They will continue to use the FWW borrowed from [facility] and bring it back when patient no longer needs it.
--- NOTE | 2016-11-22 09:46 | NUR ---
DISCHARGE PLANNING Spoke with Mariann at [facility] who stated patient at this time does not qualify for requested DME FWW.
== END 2016-11-18 16:45 | disposition home health service (06) | DRG 470 ==
LOC: SMU 08:57 → STU 11-15 20:37 → SMU 11-15 21:29
PROVIDERS: ADMIT Orthopaedic Surgery; ATTEND Internal Medicine
PROC: 0SRC0J9 Replacement of Right Knee Joint with Synthetic Substitute, Cemented, Open Approach (ICD-10-PCS; principal; 2016-11-14 12:00)
PROC: 30233N1 Transfusion of Nonautologous Red Blood Cells into Peripheral Vein, Percutaneous Approach (ICD-10-PCS; 2016-11-17)
DX: M17.31 Unilateral post-traumatic osteoarthritis, right knee (principal); E44.1 Mild protein-calorie malnutrition; I10 Essential (primary) hypertension; D64.9 Anemia, unspecified; M17.12 Unilateral primary osteoarthritis, left knee; M23.221 Derangement of posterior horn of medial meniscus due to old tear or injury, right knee; M23.351 Other meniscus derangements, posterior horn of lateral meniscus, right knee; G89.29 Other chronic pain; M54.2 Cervicalgia; K59.00 Constipation, unspecified; Z79.1 Long term (current) use of non-steroidal anti-inflammatories (NSAID); Z90.49 Acquired absence of other specified parts of digestive tract; Z88.6 Allergy status to analgesic agent; Z88.0 Allergy status to penicillin; R10.13 Epigastric pain; R11.0 Nausea
CPT/HCPCS: 36415; 73560-TC; 74000-TC; 80048; 80053; 81000-TC; 85025; 86886; 86890; 86900; 86901; 86920; 87081; 87086; 88305; 88311; 97110-GP; 97116-GP; 97530-GP; C1713; C1776; C9113; J1170; J1200; J1885; J2250; J2274; J2405; J2765; J3370; J3490; J7050; J7120

== ENCOUNTER 2017-04-23 13:13 | Outpatient (CLI) | payer OTHER ==
[~2017-04-23 13:13] MED LIST changes: +CETI1TAB2 PO; -CLINDAMYCIN PHOS 600 MG/ D5W 50 ML PREMIX IV ONE; -CLINDAMYCIN PHOSPHATE 600 mg/50mL D5W IV ONE; -COMMUNICATION ORDER XX ONE; +FERR140T PO; +HYDR-1189 PO; +HYDR25TA4 PO; +IBUP-1517 PO; -VANCOMYCIN 1 GM/NS 250 ML PREMIX BAG IV ONE; -VANCOMYCIN HCL 1,000 MG in NS 250 ML IV ONE
== END 2017-04-23 20:54 | disposition home or self-care (01) ==
LOC: SRD 13:13
PROVIDERS: ATTEND Orthopaedic Surgery
DX: M25.561 Pain in right knee (principal)
CPT/HCPCS: 73564